=== PATIENT | female | born 1985 | race Hispanic/Latino ===

== ENCOUNTER 2022-11-07 06:45 | Day surgery (SDC) | payer MEDICAID ==
[2022-11-02 13:46] VITALS: BP 120/58; PULSE 83; RESP 16
[~2022-11-07] VITALS: Ht 157.5 cm; Wt 75.4 kg
[~2022-11-07 06:45] MED LIST: ADAL40SY SQ; METH2.5T6 PO
[2022-11-07 06:50] VITALS: BP 109/69; PULSE 71; RESP 16
[2022-11-07] MEDS ORDERED: LIDOCAINE HCL 1% 20 ML VIAL ONE (07:50)
[2022-11-07] MEDS ORDERED: PROPOFOL 10 MG/ML 20ML VIAL IV ONE (07:50)
[2022-11-07] MEDS ORDERED: 0.9%NACL 1000ML 1,000 ML IV ONE (10:32)
[2022-12-09] MEDS ORDERED: LEVO250T75 PO (11:25)
== END 2022-11-07 08:35 | disposition home or self-care (01) ==
LOC: ENDO 06:45 → DAH 06:45 → ENDO 08:35
PROVIDERS: ATTEND Surgery
DX: K21.00 Gastro-esophageal reflux disease with esophagitis, without bleeding (principal); Z20.822 Contact with and (suspected) exposure to COVID-19; K80.20 Calculus of gallbladder without cholecystitis without obstruction; M06.9 Rheumatoid arthritis, unspecified; Z98.84 Bariatric surgery status; Z98.891 History of uterine scar from previous surgery; Z98.890 Other specified postprocedural states
CPT/HCPCS: 87426; 84703; 36415; 43239; 81025; 88313; 88305; 88342; 88341; J7030 ×2; J3490; A4620; A4215; A4223; A4657; A4222; A4221; A4663; A4606; J2704